=== PATIENT | female | born 1955 | race Caucasian/White ===

== ENCOUNTER → 2017-05-20 | Outpatient (CLI) | payer BC | LOC: M.RAD 13:25 | DX: S39.92XA Unspecified injury of lower back, initial encounter (principal); M25.551 Pain in right hip; M25.552 Pain in left hip; R10.31 Right lower quadrant pain; W19.XXXA Unspecified fall, initial encounter; Y93.89 Activity, other specified; Y92.89 Other specified places as the place of occurrence of the external cause; Y99.8 Other external cause status ==

== ENCOUNTER → 2017-08-03 | Outpatient (CLI) | payer BC | LOC: M.RAD 11:39 | DX: M17.11 Unilateral primary osteoarthritis, right knee (principal); M79.89 Other specified soft tissue disorders ==

== ENCOUNTER → 2019-04-28 | Outpatient (CLI) | payer BC | LOC: M.CT 10:51 | DX: M47.818 Spondylosis without myelopathy or radiculopathy, sacral and sacrococcygeal region (principal); M51.37 Other intervertebral disc degeneration, lumbosacral region; M48.07 Spinal stenosis, lumbosacral region ==